=== PATIENT | female | born 1975 | race African-American/Black ===

== ENCOUNTER 2020-06-19 23:21 | Observation (INO) | payer MEDICAID, OTHER ==
[2020-06-20 00:51] LABS: Appearance SLIGHTLY CLOUDY (CLEAR); Bilirubin NEGATIVE (NEGATIVE); Dipstick done @ ? MAIN LAB; Glucose NEGATIVE (NEGATIVE); Ketones NEGATIVE (NEGATIVE); Nitrite POSITIVE (NEGATIVE); Protein,Urine Dip 100 (Negative); RBC TRACE-INTACT Ery/ul (0-5); Specific Gravity 1.025 (1.005-1.025); Urobilinogen 0.2 mg/dL (0-1)
[2020-06-20 00:52] LABS: Bacteria FEW /HPF (NEGATIVE); Epithelial Cells RARE /HPF (FEW); Mucus SLIGHT /HPF (NEGATIVE); RBC 0-2 /HPF (0-2)
[2020-06-20 01:03] LABS: Amphetamine,Urine NEGATIVE (NEGATIVE); Barbiturate,Urine NEGATIVE (NEGATIVE); Benzodiazepine,Urine NEGATIVE (NEGATIVE); Cocaine,Urine NEGATIVE (NEGATIVE); Methadone,Urine NEGATIVE (NEGATIVE); Opiate,Urine NEGATIVE (NEGATIVE); PCP,Urine NEGATIVE (NEGATIVE); THC,Urine NEGATIVE (NEGATIVE)
[2020-06-20 01:12] LABS: Creatinine, Urine Random 59.6 mg/dl (30-125)
[2020-06-20 02:08] VITALS: O2SAT 100
[2020-06-20 02:17] VITALS: BP 195/93; PULSE 73
--- NOTE | 2020-06-20 09:04 | XRAY ---
Indication: No heart tones. Two-dimensional transabdominal early OB ultrasound performed. Comparison: None Uterus anteverted measuring 12.1 x 6.3 x 7.5 cm. Myometrium appears heterogeneous with 3 cm subserosal fundal fibroid. No intrauterine gestational sac, pole, or heart tones. Endometrial stripe is not abnormally thickened. No endometrial cavity mass or fluid collection. Right ovary measures 3.7 x 2.9 x 2.5 cm and the left measures 3.3 x 3.1 x 2.8 cm. No suspicious adnexal mass or free fluid. Impression: 1. Negative for intrauterine/ectopic . 2. Heterogeneous uterus with fundal fibroid.
== END 2020-06-20 01:20 | disposition home or self-care (01) ==
LOC: OB 23:21
PROVIDERS: ADMIT Family Medicine; ATTEND Family Medicine
DX: Z34.82 Encounter for supervision of other normal pregnancy, second trimester (principal); Z3A.24 24 weeks gestation of pregnancy
CPT/HCPCS: 59025; 76805; 80307; 81015; 82570; 84156; 87077; 87086; 87186; G0378

== ENCOUNTER 2020-06-20 01:25 | Emergency (ER) | payer MEDICAID ==
[2020-06-20] MEDS ORDERED: hydroDIURIL 25 MG PO STA (02:10)
[2020-06-20 02:22] VITALS: O2SAT 100
[2020-06-20] MEDS ORDERED: Macrobid 100MG Capsule PO ONE (02:22)
[2020-06-20] MEDS ORDERED: Macrobid 100MG Capsule ONE (02:23)
[2020-06-20 02:30] LABS: Absolute Neutrophil Ct (ANC) 4.66 (1.4-6.9); BASOPHIL % 0.6 % (0.0-0.4); Basophil (Absolute #) 0.05 (0-0.4); Eosinophil % 3.7 % (0.00-5.0); Hematocrit 40.5 % (35-47); Hemoglobin 12.6 gm/dl (12.0-16.0); Lymphocyte (Absolute #) 2.44 (1.0-4.6); Mean Cell Volume 80.7 fl (78-100); Mean Corpuscular Hemoglobin 25.1 pg (26-32); Mean Corpuscular Hgb Concent. 31.1 g/dl (32-36); Mean Platelet Volume 10.8 fl (7.5-11.0); Monocyte (Absolute #) 0.68 (0.0-1.3); Monocytes % 8.4 % (0.0-12.0); Neutrophil % 57.3 % (36.0-66.0); Platelet Count 285 K/mm3 (150-450); Red Blood Count 5.02 M/mm3 (4.1-5.4); Red Cell Distribution Width 17.7 % (11.5-14.0); White Blood Count 8.1 K/mm3 (4.0-10.5)
--- NOTE | 2020-06-20 02:32 | ERPHSYRPT ---
- History of Present Illness Time Seen by Provider: 06/20/20 01:55 Source: patient Exam Limitations: no limitations Patient Subjective Stated Complaint: Patient states she woke up with a headache this morning and she had checked her B/P and it was way to high. Patient states she never has H/A's and she is now concerned. Triage Nursing Assessment: Patient arrived to ER per self. Patient A/O times 4. Patient able to follow directions without difficulty. Lungs clear bilateral A/P throughout. Patient denies chest pain. Denies SOB. Patient denies N/V. Patient denies having H/A at this time. Patient was down on OB informing them she was 6 months and hypertensive. Patient had ultrasound preformed and according to OB " patient not and had no remains of baby". Patient discharged from OB and then registered to ER for hypertension. Patient hypertensive upon arrival. Patient with no complaints of dizziness or being lightheaded. Patient asymptomatic R/T increase in B/P. + radial and pedal pulses bilateral. No edema noted. Bilateral pupils brisk and reactive to light. 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 Patient denies any pain or discomfort upon arrival to ER Physician History: Patient is a 45-year-old female presents to our ED for evaluation and treatment of hypertension. Patient awoke this morning with a headache. She checked her blood pressure and found it to be elevated. Patient presented to our ED and she was sent to OB for an evaluation. Patient believes at that time that she was 6 months . OB performed an ultrasound and determined that patient was not . Patient was sent to our ED for evaluation and management of her high blood pressure. Patient currently feels well. No chest pain or shortness of breath. No nausea or vomiting. No diaphoresis. No lightheadedness or dizziness. Patient states she is normally on hydrochlorothiazide and she believes Lasix as well. Patient has not taken her blood pressure medication in 2 days. Patient states she has been hypertensive for the past 2 years. Patient advises that she was diagnosed with hypertension induced cardiomegaly. No numbness tingling or weakness. No blurred vision. Patient voices no other complaints or concerns at this time. Timing/Duration: today Severity: mild Modifying Factors: Improves With: nothing Associated Symptoms: No nausea, No vomiting, No abdominal pain, No shortness of breath, No heartburn, No diaphoresis, No cough, No chills, No chest pain, No fever, No headaches, No loss of appetite, No malaise, No syncope, No seizure Allergies/Adverse Reactions: No Known Drug Allergies Allergy (Unverified 06/20/20 01:38) Home Medications: Furosemide [Lasix] 40 mg PO DAILY 03/23/15 [History] Hx Tetanus, Diphtheria Vaccination/Date Given: Yes Hx Influenza Vaccination/Date Given: No Hx Pneumococcal Vaccination/Date Given: No Immunizations Up to Date: Yes Travel Risk - International Travel Have you traveled outside of the country in past 3 weeks: No - Coronavirus Screening Are you exhibiting any of the following symptoms?: Yes Symptoms: Headaches/Body Aches/Fatigue Close contact with a COVID-19 positive Pt in past 14-21 Days: No - Review of Systems Constitutional: No Symptoms, No Fever, No Chills Eyes: No Symptoms Ears, Nose, & Throat: No Symptoms Respiratory: No Symptoms, No Cough, No Dyspnea Cardiac: No Symptoms, No Chest Pain, No Edema, No Syncope Abdominal/Gastrointestinal: No Symptoms, No Abdominal Pain, No Nausea, No Vomiting, No Diarrhea Genitourinary Symptoms: No Symptoms, No Dysuria Musculoskeletal: No Symptoms, No Back Pain, No Neck Pain Skin: No Symptoms, No Rash Neurological: No Symptoms, No Dizziness, No Focal Weakness, No Sensory Changes Psychological: No Symptoms Endocrine: No Symptoms Hematologic/Lymphatic: No Symptoms Immunological/Allergic: No Symptoms All Other Systems: Reviewed and Negative - Past Medical History Pertinent Past Medical History: Yes Neurological History: No Pertinent History ENT History: No Pertinent History Cardiac History: Hypertension Respiratory History: No Pertinent History Endocrine Medical History: No Pertinent History Musculoskeletal History: No Pertinent History GI Medical History: No Pertinent History History: No Pertinent History Psycho-Social History: No Pertinent History Female Reproductive Disorders: No Pertinent History Other Medical History: ANEMIA; PSORIASIS. - Past Surgical History Past Surgical History: Yes Neuro Surgical History: No Pertinent History Cardiac: No Pertinent History Respiratory: No Pertinent History Gastrointestinal: Cholecystectomy Genitourinary: No Pertinent History Musculoskeletal: No Pertinent History Female Surgical History: Section - Social History Smoking Status: Current every day smoker How long have you smoked: 28 years Exposure to second hand smoke: Yes Drug Use: marijuana Patient Lives Alone: Yes - Female History Hx Last Menstrual Period: 01/22 Hx Now: No - Nursing Vital Signs Nursing Vital Signs: Initial Vital Signs Temperature 98.2 F 06/20/20 01:41 Pulse Rate 70 06/20/20 01:41 Respiratory Rate 18 06/20/20 01:41 Blood Pressure 224/126 06/20/20 01:41 O2 Sat by Pulse Oximetry 99 06/20/20 01:41 Pain Scale Pain Intensity 0 - Physical Exam General Appearance: no apparent distress, alert Eye Exam: PERRL/EOMI, eyes nml inspection Ears, Nose, Throat Exam: normal ENT inspection, TMs normal, pharynx normal, moist mucous membranes Neck Exam: normal inspection, non-tender, supple, full range of motion Respiratory Exam: normal breath sounds, lungs clear, No respiratory distress Cardiovascular Exam: regular rate/rhythm, normal heart sounds, normal peripheral pulses, other (No jvd) Gastrointestinal/Abdomen Exam: soft, normal bowel sounds, No tenderness, No mass Back Exam: normal inspection, normal range of motion, No CVA tenderness, No vertebral tenderness Extremity Exam: normal inspection, normal range of motion, pelvis stable, other (NO LE pitting edema. ), No calf tenderness, No yasmin's sign Neurologic Exam: alert, oriented x 3, cooperative, normal mood/affect, nml cerebellar function, nml station & gait, sensation nml, No motor deficits Skin Exam: normal color, warm, dry, No rash Lymphatic Exam: No adenopathy SpO2 Interpretation: normal SpO2: 100 O2 Delivery: Room Air - Course Nursing assessment & vital signs reviewed: Yes EKG Interpreted by Me: RATE (73), NORMAL AXIS, NORMAL INTERVALS Ordered Tests: Active Orders 24 hr Category Date Time Status Safe Deposit Box Rental Clerk STAT Care 06/20/20 02:07 Active EKG-ER Only STAT Care 06/20/20 02:06 Active Pulse Oximetry (ED) STAT Care 06/20/20 02:06 Active CHEST 1 VIEW (PORTABLE) Stat Exams 06/20/20 02:08 Ordered CBC W DIFF Stat Lab 06/20/20 02:30 Completed CMP Stat Lab 06/20/20 02:30 Completed HCG,QUALITATIVE URINE Stat Lab 06/20/20 02:14 Completed TROPONIN Q3H Lab 06/20/20 02:30 Completed TROPONIN Q3H Lab 06/20/20 05:15 Ordered TROPONIN Q3H Lab 06/20/20 08:15 Ordered TROPONIN Q3H Lab 06/20/20 11:15 Ordered TROPONIN Q3H Lab 06/20/20 14:15 Ordered Medication Summary Discontinued Medications Generic Name Dose Route Start Last Admin Trade Name Freq PRN Reason Stop Dose Admin Hydrochlorothiazide 25 mg 06/20/20 02:10 06/20/20 02:25 Hydrodiuril 25 Mg PO 06/20/20 02:11 25 mg ONCE STA Administration Nitrofurantoin Macrocrystals 100 mg 06/20/20 02:22 06/20/20 02:25 Macrobid 100mg Capsule PO 06/20/20 02:23 100 mg STAT ONE Administration Nitrofurantoin Macrocrystals Confirm 06/20/20 02:23 Macrobid 100mg Capsule Administered 06/20/20 02:24 Dose 100 mg .ROUTE .STK-MED ONE Lab/Rad Data: Laboratory Result Diagrams 06/20/20 02:30 06/20/20 02:30 Laboratory Results 06/20/20 06/20/20 06/20/20 Range/Units 02:30 02:30 02:30 WBC 8.1 (4.0-10.5) K/mm3 RBC 5.02 (4.1-5.4) M/mm3 Hgb 12.6 (12.0-16.0) gm/dl Hct 40.5 (35-47) % MCV 80.7 (78-100) fl MCH 25.1 L (26-32) pg MCHC 31.1 L (32-36) g/dl RDW 17.7 H (11.5-14.0) % Plt Count 285 (150-450) K/mm3 MPV 10.8 (7.5-11.0) fl Gran % 57.3 (36.0-66.0) % Eos # (Auto) 0.30 (0-0.5) Absolute Lymphs (auto) 2.44 (1.0-4.6) Absolute Monos (auto) 0.68 (0.0-1.3) Lymphocytes % 30.0 (24.0-44.0) % Monocytes % 8.4 (0.0-12.0) % Eosinophils % 3.7 (0.00-5.0) % Basophils % 0.6 (0.0-0.4) % Absolute Granulocytes 4.66 (1.4-6.9) Basophils # 0.05 (0-0.4) Sodium 135 L (137-145) mmol/L Potassium 4.0 (3.5-5.1) mmol/L Chloride 101 (98-107) mmol/L Carbon Dioxide 28 (22-30) mmol/L Anion Gap 9.7 (5-15) MEQ/L BUN 12 (7-17) mg/dL Creatinine 0.53 (0.52-1.04) mg/dL Estimated GFR > 60.0 ML/MIN Glucose 112 H (74-106) mg/dL Calcium 9.0 (8.4-10.2) mg/dL Total Bilirubin 0.20 (0.2-1.3) mg/dL AST 23 (14-36) U/L ALT 17 (0-35) U/L Alkaline Phosphatase 92 (38-126) U/L Troponin I < 0.012 (0.000-0.034) ng/mL Serum Total Protein 7.4 (6.3-8.2) g/dL Albumin 3.9 (3.5-5.0) g/dL Urine HCG, Qual (Negative) 06/20/20 Range/Units 02:14 WBC (4.0-10.5) K/mm3 RBC (4.1-5.4) M/mm3 Hgb (12.0-16.0) gm/dl Hct (35-47) % MCV (78-100) fl MCH (26-32) pg MCHC (32-36) g/dl RDW (11.5-14.0) % Plt Count (150-450) K/mm3 MPV (7.5-11.0) fl Gran % (36.0-66.0) % Eos # (Auto) (0-0.5) Absolute Lymphs (auto) (1.0-4.6) Absolute Monos (auto) (0.0-1.3) Lymphocytes % (24.0-44.0) % Monocytes % (0.0-12.0) % Eosinophils % (0.00-5.0) % Basophils % (0.0-0.4) % Absolute Granulocytes (1.4-6.9) Basophils # (0-0.4) Sodium (137-145) mmol/L Potassium (3.5-5.1) mmol/L Chloride (98-107) mmol/L Carbon Dioxide (22-30) mmol/L Anion Gap (5-15) MEQ/L BUN (7-17) mg/dL Creatinine (0.52-1.04) mg/dL Estimated GFR ML/MIN Glucose (74-106) mg/dL Calcium (8.4-10.2) mg/dL Total Bilirubin (0.2-1.3) mg/dL AST (14-36) U/L ALT (0-35) U/L Alkaline Phosphatase (38-126) U/L Troponin I (0.000-0.034) ng/mL Serum Total Protein (6.3-8.2) g/dL Albumin (3.5-5.0) g/dL Urine HCG, Qual NEGATIVE (Negative) - Progress Progress: improved Progress Note: 06/20/20 03:21 Patient reassessed. She appears well. Repeat neuro exam within normal limits. Patient asymptomatic. Patient's map decreased from 170 130 after administration of 25 mg hydrochlorothiazide p.o. Laboratory work-up completed. No indication of end organ damage. Neuro exam within normal limits. BUN and creatinine are within normal limits. Troponin negative. EKG is normal sinus rhythm. Chest x-ray clear. Patient states she has not taken her blood pressure medication in 2 days. She provides no clear explanation. Patient states she has all of her blood pressure medication available to her and agrees to resume her blood pressure medication as per her primary care physician recommendations. No need for blood pressure prescriptions at this time. Our work-up today also revealed a urinary tract infection. Patient was treated with a dose of Macrobid in our ED. A handwritten prescription was provided to patient. Patient understands that she is to take her antibiotic prescription as prescribed to its completion. Patient advised to follow-up with her primary care doctor. She agrees to follow-up within 48 hours for a reevaluation. Patient voices no other complaints concerns at this time. Will discharge home. Counseled pt/family regarding: lab results, diagnosis, need for follow-up, rad results - Departure Departure Disposition: Home Clinical Impression: UTI (urinary tract infection), Hypertensive urgency Condition: Stable Critical Care Time: No Referrals: Provider,Unknown [Primary Care Provider] - Instructions: Urinary Tract Infection, Adult (DC), Malignant Hypertension (DC) Additional Instructions: Discharge/Care Plan ALEX TRONCOSO was seen on 06/20/20 in the Emergency Room. The patient was counseled regarding Diagnosis,Lab results, Imaging studies, need for follow up and when to return to the Emergency Room. Prescriptions given: Discharge Note I have spoken with the patient and/or caregivers. I have explained the patient's condition, diagnosis and treatment plan based on the information available to me at this time. I have answered the patient's and/or caregiver's questions and addressed any concerns. The patient and/or caregivers have as good understanding of the patient's diagnosis, condition and treatment plan as can be expected at this point. The vital signs have been stable. The patient's condition is stable and appropriate for discharge from the emergency department. The patient will pursue further outpatient evaluation with the primary care physician or other designated or consulting physician as outlined in the discharge instructions. The patient and/or caregivers are agreeable to this plan of care and follow-up instructions have been explained in detail. The patient and/or caregivers have received these instruction. The patient/and or caregivers are aware that any significant change in condition or worsening of symptoms should prompt an immediate return to this or the closest emergency department or call 911.
[2020-06-20 02:43] LABS: ALBUMIN 3.9 g/dL (3.5-5.0); ALKALINE PHOSPHATASE 92 U/L (38-126); ANION GAP 9.7 MEQ/L (5-15); BLOOD UREA NITROGEN 12 mg/dL (7-17); CHLORIDE 101 mmol/L (98-107); Carbon Dioxide 28 mmol/L (22-30); Creatinine 1 0.53 mg/dL (0.52-1.04); EST GLOMERULAR FILTRATION RATE > 60.0 ML/MIN; Glucose 112 mg/dL (74-106); SGOT/AST 23 U/L (14-36); SGPT/ALT 17 U/L (0-35); SODIUM 135 mmol/L (137-145); Total Protein 7.4 g/dL (6.3-8.2)
[2020-06-20 03:19] VITALS: BP 196/97; PULSE 74
--- NOTE | 2020-06-20 09:02 | XRAY ---
Indication: Congestion. Comparison: None Portable apical lordotic chest demonstrates borderline cardiomegaly. Remaining lungs and bony thorax normal.
== END 2020-06-20 03:25 | disposition home or self-care (01) ==
LOC: ED 01:25
DX: I16.0 Hypertensive urgency (principal); N39.0 Urinary tract infection, site not specified; D64.9 Anemia, unspecified; R51.9 Headache, unspecified; F12.90 Cannabis use, unspecified, uncomplicated; F17.200 Nicotine dependence, unspecified, uncomplicated; Z79.899 Other long term (current) drug therapy
CPT/HCPCS: 36415; 71045; 80053; 84484; 84703; 85025; 93005; 93041; 94760; 99284; A9270-GY